=== PATIENT | female | born 1925 | race Caucasian/White ===

== ENCOUNTER 2016-12-01 09:30 | Outpatient (CLI) | payer MEDICARE, BC | END 2016-12-01 23:59 | disposition home health service (06) | LOC: WOU 09:30 | PROVIDERS: ATTEND Surgery | DX: I83.028 Varicose veins of left lower extremity with ulcer other part of lower leg (principal); I96 Gangrene, not elsewhere classified; L97.821 Non-pressure chronic ulcer of other part of left lower leg limited to breakdown of skin; I70.202 Unspecified atherosclerosis of native arteries of extremities, left leg; R03.0 Elevated blood-pressure reading, without diagnosis of hypertension; I83.893 Varicose veins of bilateral lower extremities with other complications; Z85.828 Personal history of other malignant neoplasm of skin | CPT/HCPCS: 11042; 11045; A6209; A6402; A6452 ==

== ENCOUNTER 2016-12-14 14:10 | Outpatient (CLI) | payer MEDICARE, BC | END 2016-12-14 23:59 | disposition home health service (06) | LOC: WOU 14:10 | PROVIDERS: ATTEND Surgery | DX: I83.022 Varicose veins of left lower extremity with ulcer of calf (principal); L97.221 Non-pressure chronic ulcer of left calf limited to breakdown of skin; I83.892 Varicose veins of left lower extremity with other complications; R03.0 Elevated blood-pressure reading, without diagnosis of hypertension; Z85.828 Personal history of other malignant neoplasm of skin; I70.262 Atherosclerosis of native arteries of extremities with gangrene, left leg | CPT/HCPCS: 11042; 11045; A6209; A6402 ==

== ENCOUNTER 2016-12-15 14:43 | Outpatient (CLI) | payer MEDICARE, BC | END 2016-12-15 23:59 | disposition home or self-care (01) | LOC: VASLAB 14:43 | PROVIDERS: ATTEND Surgery Vascular Surgery | DX: I87.2 Venous insufficiency (chronic) (peripheral) (principal); L97.829 Non-pressure chronic ulcer of other part of left lower leg with unspecified severity; R60.0 Localized edema; Z85.828 Personal history of other malignant neoplasm of skin | CPT/HCPCS: A6209; A6402; A6452; G0463 ==

== ENCOUNTER 2016-12-28 14:19 | Outpatient (CLI) | payer MEDICARE, BC | END 2016-12-28 23:59 | disposition home health service (06) | LOC: WOU 14:19 | PROVIDERS: ATTEND Surgery | DX: I96 Gangrene, not elsewhere classified (principal); I83.028 Varicose veins of left lower extremity with ulcer other part of lower leg; L97.829 Non-pressure chronic ulcer of other part of left lower leg with unspecified severity; I83.893 Varicose veins of bilateral lower extremities with other complications; Z85.828 Personal history of other malignant neoplasm of skin; R03.0 Elevated blood-pressure reading, without diagnosis of hypertension | CPT/HCPCS: 11042; 11045; A6209; A6402; A6452 ==

== ENCOUNTER 2017-01-01 12:37 | Outpatient (CLI) | payer MEDICARE, BC ==
[2017-01-01 13:24] LABS: CREATININE 0.7 mg/dL (0.6-1.3)
== END 2017-01-01 23:59 | disposition home or self-care (01) ==
LOC: LAB 12:37
PROVIDERS: ATTEND Surgery Vascular Surgery
DX: M79.89 Other specified soft tissue disorders (principal)
CPT/HCPCS: 36415; 82565-TC; 84520-TC

== ENCOUNTER 2017-01-04 11:07 | Outpatient (CLI) | payer MEDICARE, BC ==
[2017-01-04] MEDS ORDERED: IOHEXOL-350 100 ML VIAL IV ONE (11:27)
[2017-01-04] MEDS ORDERED: IV NS 0.9% 250 ML IV ONE (11:27)
[2017-01-04] MEDS ORDERED: CT SWABBABLE VALVE TRANS SET 1 EA INFUS.SET MC ONE (11:27)
== END 2017-01-04 23:59 | disposition home or self-care (01) ==
LOC: CT 11:07
PROVIDERS: ATTEND Surgery Vascular Surgery
DX: I70.0 Atherosclerosis of aorta (principal); M24.9 Joint derangement, unspecified; M20.12 Hallux valgus (acquired), left foot; M20.11 Hallux valgus (acquired), right foot; K43.9 Ventral hernia without obstruction or gangrene
CPT/HCPCS: 75635; J7050; Q9967

== ENCOUNTER 2017-01-11 15:46 | Outpatient (CLI) | payer MEDICARE, BC | END 2017-01-11 23:59 | disposition home or self-care (01) | LOC: WOU 15:46 | PROVIDERS: ATTEND Surgery | DX: I83.022 Varicose veins of left lower extremity with ulcer of calf (principal); I96 Gangrene, not elsewhere classified; L97.221 Non-pressure chronic ulcer of left calf limited to breakdown of skin; I83.893 Varicose veins of bilateral lower extremities with other complications; R03.0 Elevated blood-pressure reading, without diagnosis of hypertension; Z85.828 Personal history of other malignant neoplasm of skin | CPT/HCPCS: 11042; A6209; A6402; A6452 ==

== ENCOUNTER 2017-01-19 15:05 | Outpatient (CLI) | payer MEDICARE, BC | END 2017-01-19 23:59 | disposition home or self-care (01) | LOC: VASLAB 15:05 | PROVIDERS: ATTEND Surgery Vascular Surgery | DX: I87.2 Venous insufficiency (chronic) (peripheral) (principal); N32.9 Bladder disorder, unspecified | CPT/HCPCS: G0463 ==

== ENCOUNTER 2017-02-08 13:57 | Outpatient (CLI) | payer MEDICARE, BC | END 2017-02-08 23:59 | disposition home health service (06) | LOC: WOU 13:57 | PROVIDERS: ATTEND Surgery | DX: I83.028 Varicose veins of left lower extremity with ulcer other part of lower leg (principal); I96 Gangrene, not elsewhere classified; L97.821 Non-pressure chronic ulcer of other part of left lower leg limited to breakdown of skin; I83.893 Varicose veins of bilateral lower extremities with other complications; R03.0 Elevated blood-pressure reading, without diagnosis of hypertension; Z98.890 Other specified postprocedural states | CPT/HCPCS: 11042; A6209; A6402; A6452 ==

== ENCOUNTER 2017-03-08 14:13 | Outpatient (CLI) | payer MEDICARE, BC | END 2017-03-08 23:59 | disposition home health service (06) | LOC: WOU 14:13 | PROVIDERS: ATTEND Surgery | DX: I83.012 Varicose veins of right lower extremity with ulcer of calf (principal); L97.211 Non-pressure chronic ulcer of right calf limited to breakdown of skin; Z85.828 Personal history of other malignant neoplasm of skin; I83.893 Varicose veins of bilateral lower extremities with other complications; R03.0 Elevated blood-pressure reading, without diagnosis of hypertension | CPT/HCPCS: 11042; A6209; A6402; A6452 ==

== ENCOUNTER 2017-04-19 15:08 | Outpatient (CLI) | payer MEDICARE, BC | END 2017-04-19 23:59 | disposition home health service (06) | LOC: WOU 15:08 | PROVIDERS: ATTEND Surgery | DX: I83.222 Varicose veins of left lower extremity with both ulcer of calf and inflammation (principal); L97.221 Non-pressure chronic ulcer of left calf limited to breakdown of skin; I83.893 Varicose veins of bilateral lower extremities with other complications; R03.0 Elevated blood-pressure reading, without diagnosis of hypertension; Z85.828 Personal history of other malignant neoplasm of skin; I70.202 Unspecified atherosclerosis of native arteries of extremities, left leg | CPT/HCPCS: 11042; A6402; A6452 ==

== ENCOUNTER 2017-04-27 15:30 | Outpatient (CLI) | payer MEDICARE, BC | END 2017-04-27 23:59 | disposition home health service (06) | LOC: WOU 15:30 | PROVIDERS: ATTEND Surgery | DX: I83.222 Varicose veins of left lower extremity with both ulcer of calf and inflammation (principal); L97.221 Non-pressure chronic ulcer of left calf limited to breakdown of skin; I83.893 Varicose veins of bilateral lower extremities with other complications; R03.0 Elevated blood-pressure reading, without diagnosis of hypertension; Z85.828 Personal history of other malignant neoplasm of skin; I70.202 Unspecified atherosclerosis of native arteries of extremities, left leg; Z98.890 Other specified postprocedural states | CPT/HCPCS: 11042; A6402; A6452 ==

== ENCOUNTER 2017-05-10 12:53 | Outpatient (CLI) | payer MEDICARE, BC | END 2017-05-10 23:59 | disposition home health service (06) | LOC: WOU 12:53 | PROVIDERS: ATTEND Surgery | DX: I83.228 Varicose veins of left lower extremity with both ulcer of other part of lower extremity and inflammation (principal); L97.821 Non-pressure chronic ulcer of other part of left lower leg limited to breakdown of skin; L97.221 Non-pressure chronic ulcer of left calf limited to breakdown of skin; C44.719 Basal cell carcinoma of skin of left lower limb, including hip; R03.0 Elevated blood-pressure reading, without diagnosis of hypertension; I70.262 Atherosclerosis of native arteries of extremities with gangrene, left leg | CPT/HCPCS: 11042; A6402; A6452 ==

== ENCOUNTER 2017-05-24 14:54 | Outpatient (CLI) | payer MEDICARE, BC | END 2017-05-24 23:59 | disposition home health service (06) | LOC: WOU 14:54 | PROVIDERS: ATTEND Surgery | DX: I83.222 Varicose veins of left lower extremity with both ulcer of calf and inflammation (principal); L97.221 Non-pressure chronic ulcer of left calf limited to breakdown of skin; I83.893 Varicose veins of bilateral lower extremities with other complications; R03.0 Elevated blood-pressure reading, without diagnosis of hypertension; Z85.828 Personal history of other malignant neoplasm of skin; I70.202 Unspecified atherosclerosis of native arteries of extremities, left leg; Z98.890 Other specified postprocedural states | CPT/HCPCS: 97597; A6402; A6452 ==

== ENCOUNTER 2017-06-14 14:30 | Outpatient (CLI) | payer MEDICARE, BC | END 2017-06-14 23:59 | disposition home or self-care (01) | LOC: WOU 14:30 | PROVIDERS: ATTEND Surgery | DX: I83.893 Varicose veins of bilateral lower extremities with other complications (principal); R03.0 Elevated blood-pressure reading, without diagnosis of hypertension; Z85.828 Personal history of other malignant neoplasm of skin; I70.202 Unspecified atherosclerosis of native arteries of extremities, left leg; Z98.890 Other specified postprocedural states | CPT/HCPCS: G0463 ==